=== PATIENT | male | born 1995 | race Two or more races ===

== ENCOUNTER 2024-04-21 10:41 | Emergency (ER) | payer OTHER ==
[~2024-04-21] VITALS: Ht 175.3 cm; Wt 81.6 kg
[2024-04-21] MEDS ORDERED: KETOROLAC TROMETHAMINE 60 MG VIAL IM STA (12:14)
[2024-04-21] MEDS ORDERED: DEXAMETHASONE SODIUM PHOSPHATE 4 MG/ML VIAL IM STA (12:15)
[2024-04-21] MEDS ORDERED: ORPHENADRINE CITRATE 30 MG/ML AMPUL IM STA (12:15)
[2024-04-21] MEDS ORDERED: MEDROLPACK PO (14:07)
[2024-04-21] MEDS ORDERED: NABUMETONE750 MG PO (14:07)
[2024-04-21] MEDS ORDERED: NORFLEX100MG PO (14:07)
== END 2024-04-21 14:19 | disposition home or self-care (01) ==
LOC: ER 10:43
DX: M54.50 Low back pain, unspecified (principal)